=== PATIENT | female | born 1935 | race Caucasian/White ===

== ENCOUNTER → 2016-09-11 | Outpatient (CLI) | payer OTHER ==
[~2016-09-11] MED LIST: ADVIN25050 PO; ESCI10TA17 PO; HYDR-5688 PO; LEVO25TA5 PO; MONT1TAB5 PO; PRAV40TA2 PO; PRT/20 PO; spiriva
[2016-09-11 13:28] LABS: BASO % 0.2 %; BASO ABS # 0.02 K/uL (0-0.2); COMPLETE YES; EOS % 3.7 %; HEMATOCRIT 36.1 % (37-47); IG% 0.6 %; LYMPH % 13.4 %; LYMPH ABS # 1.47 K/uL (1.2-3.4); MEAN CELL VOLUME 87.4 fL (80-100); MEAN CORPUSCULAR HEMOGLOBIN 29.1 pg (25-34); MEAN CORPUSCULAR HGB CONC 33.2 g/dl (32-36); MEAN PLATELET VOLUME 10.6 fL (7.4-10.4); MONO % 9.5 %; NEUT % 72.6 %; PLATELET COUNT 408 K/uL (130-400); RED BLOOD COUNT 4.13 M/uL (4.2-5.4); WHITE BLOOD COUNT 10.97 K/uL (4.8-10.8)
[2016-09-11 13:41] LABS: ALT/SGPT 119 U/L (12-78); BLOOD UREA NITROGEN 13 mg/dl (7-18); BUN/CREATININE RATIO 15.7 (10-20); CALCIUM 9.3 mg/dl (8.5-10.1); CARBON DIOXIDE 27 mmol/L (21-32); CHLORIDE 103 mmol/L (98-107); CREATININE 0.82 mg/dl (0.60-1.20); GLUCOSE 126 mg/dl (70-99); POTASSIUM 4.3 mmol/L (3.5-5.1); SODIUM 140 mmol/L (136-145)
[2016-09-11 13:44] LABS: ALB/GLOB RATIO 0.6 (0.9-2); ALKALINE PHOSPHATASE 440 U/L (45-117); AST/SGOT 74 U/L (15-37)
[2016-09-11 13:48] LABS: URINE APPEARANCE TURBID (CLEAR); URINE EPITHELIAL CELL AUTO >30 /lpf (0-5); URINE NITRITE POS (NEG); URINE PH 5.5 (4.5-7.5); URINE SPECIFIC GRAVITY 1.038 (1.000-1.030); UROBILINOGEN NEG (NEG)
[2016-09-11 14:00] LABS: MANUAL MICROSCOPIC REQUIRED? NO; REVIEW REQ? YES; URINE BILIRUBIN 2+ (NEG); URINE COLOR AMBER
== END | disposition home or self-care (01) ==
LOC: C.LABMFLN 16:51
PROVIDERS: ATTEND Family Medicine
DX: K86.3 Pseudocyst of pancreas (principal); K31.1 Adult hypertrophic pyloric stenosis; N64.4 Mastodynia; R31.9 Hematuria, unspecified

== ENCOUNTER → 2016-09-12 | Outpatient (CLI) | payer OTHER | END | disposition home or self-care (01) | LOC: C.LABMFLN 08:12 | PROVIDERS: ATTEND Family Medicine | DX: R31.9 Hematuria, unspecified (principal); K31.1 Adult hypertrophic pyloric stenosis; N64.4 Mastodynia; K86.3 Pseudocyst of pancreas ==